=== PATIENT | female | born 1980 ===

== ENCOUNTER 2019-01-02 18:37 | Emergency (ER) | payer SELFPAY ==
[2019-01-02 19:34] VITALS: O2SAT 100
--- NOTE | 2019-01-02 20:20 | ED PDOC ---
HPI: Abdomen Time Seen by Provider: 01/02/19 19:36 Chief Complaint (Nursing): Abdominal Pain Chief Complaint (Provider): Abdominal Pain History Per: Patient History/Exam Limitations: no limitations Onset/Duration Of Symptoms: Days (x10) Current Symptoms Are (Timing): Still Present Additional Complaint(s): Patient is a 38 y/o female with no significant PMHx who presents to the ED for evaluation of right-sided abdominal pain, onset ten days ago. The patient claims the pain was of gradual onset, but has worsened and become constant. Patient reports at the onset of her symptoms she was experiencing dysuria that has now resolved. Patient states the pain is radiating down to her right lower quadrant and up to her posterior shoulder. Patient complains of nausea, a subjective fever, and chills. Patient denies any recent injury, vomiting, constipation, diarrhea, vaginal discharge, and hematuria. Of note, patient is on the last day of her period and is exhibiting normal bleeding. PCP: None Provided Past Medical History Reviewed: Historical Data, Nursing Documentation, Vital Signs Vital Signs: Last Vital Signs Temp 99.2 F 01/02/19 19:32 Pulse 69 01/02/19 19:32 Resp 16 01/02/19 19:32 BP 130/77 01/02/19 19:32 Pulse Ox 100 01/02/19 19:32 - Medical History PMH: No Chronic Diseases - Surgical History Surgical History: - Family History Family History: States: Diabetes - Social History Current smoker - smoking cessation education provided: No Ex-Smoker (has not smoked in the last 12 months): No - Home Medications Home Medications: Ambulatory Orders Medication Instructions Recorded Ibuprofen [Motrin Tab] 600 mg PO Q6 #30 tab 01/03/19 - Allergies Allergies/Adverse Reactions: Allergies Allergy/AdvReac Type Severity Reaction Status Date / Time No Known Allergies Allergy Verified 01/02/19 19:32 Review of Systems ROS Statement: Except As Marked, All Systems Reviewed And Found Negative (as per HPI) Constitutional: Positive for: Fever (subjective), Chills Gastrointestinal: Positive for: Nausea, Abdominal Pain (right-sided; radiating to right lower quadrant). Negative for: Vomiting, Diarrhea, Constipation Genitourinary Female: Positive for: Vaginal Bleeding (Normal). Negative for: Dysuria, Hematuria, Vaginal Discharge Musculoskeletal: Positive for: Shoulder Pain (right posterior) Physical Exam - Reviewed Nursing Documentation Reviewed: Yes Vital Signs Reviewed: Yes - Physical Exam Appears: Positive for: Non-toxic, No Acute Distress Head Exam: Positive for: ATRAUMATIC, NORMOCEPHALIC Skin: Positive for: Warm, Dry. Negative for: Jaundice Eye Exam: Positive for: EOMI, PERRL ENT: Negative for: Pharyngeal Erythema, Tonsillar Exudate Neck: Positive for: Painless ROM, Supple Cardiovascular/Chest: Positive for: Regular Rate, Rhythm. Negative for: Murmur Respiratory: Positive for: Normal Breath Sounds. Negative for: Respiratory Distress Gastrointestinal/Abdominal: Positive for: Soft, Tenderness (right lateral). Negative for: Mass, Guarding, Rebound, Other (McBurney's and Mckeon's Sign) Back: Positive for: Normal Inspection. Negative for: L CVA Tenderness, R CVA Tenderness Extremity: Positive for: Normal ROM. Negative for: Deformity Lymphatic: Negative for: Adenopathy Neurological/Psych: Positive for: Awake. Negative for: Motor/Sensory Deficits - Laboratory Results Result Diagrams: 01/02/19 21:02 01/02/19 21:02 - ECG O2 Sat by Pulse Oximetry: 100 (RA) Pulse Ox Interpretation: Normal Medical Decision Making Medical Decision Making: Time: 1956 Impression: Right-Sided Abdominal Pain DDx includes but not limited to gall bladder disease, pyelonephritis, and hepatic disease. Plan: CMP Lipase Urine Urine Dipstick CBC Toradol 15 mg IVP IV Insertion Abdomen Limited (GB Included) [US] Labs unremarkable. Time: 2129 Findings Liver Measures 13.6 cm in length. Normal echogenicity of the liver parenchyma. Solid inhomogeneous lesion in the left lobe of the liver measuring 6.5 x 5.3 x 6.1 cm. Right hepatic solid hypoechoic lesion measuring 2.1 x 2.1 x 2.1 cm. No intrahepatic bile duct dilatation. Gallbladder Unremarkable. No gallstones. Wall thickness measures 0.2 cm. Common bile duct Measures 4 mm. No stones. No dilatation. Pancreas Unremarkable as visualized. No mass. No ductal dilatation. Right kidney Measures 9.1 x 4.9 x 4.4 cm in length. Normal echogenicity. No calculus, mass, or hydronephrosis. Aorta No aneurysmal dilatation. IVC Unremarkable. Other Findings None. Impression 1. Left lobe of the liver large solid hypoechoic lesion measuring 6.5 x 5.3 x 6.1 cm. 2. Right hepatic solid hypoechoic lesion measuring 2.1 x 2.1 x 2.1 cm. 3. Follow up with CT hepatic protocol is recommended. Electronically signed on Jan 02, 2019 9:30:33 PM EDT by: Gaetano Ng M.D., SHARRI Certified By [facility] Trained MRI and CT Specialist CT ordered as recommended above. Endorsed to Dr Bazzi at [address], reassessment and final ER disposition. Scribe Attestation: Documented by Arian Munguia, acting as a scribe for Celina Wade MD. Provider Scribe Attestation: All medical record entries made by the Scribe were at my direction and personally dictated by me. I have reviewed the chart and agree that the record accurately reflects my personal performance of the history, physical exam, medical decision making, and the department course for this patient. I have also personally directed, reviewed, and agree with the discharge instructions and disposition. Disposition - Clinical Impression Clinical Impression: Side pain - Disposition Disposition: Transfer of Care Disposition Time: 23:00 Condition: STABLE Prescriptions: Ibuprofen [Motrin Tab] 600 mg PO Q6 #30 tab Print Language: WOLOF
[2019-01-02 21:10] LABS: BASO # 0.1 K/uL (0.0-0.2); BASO % 0.9 % (0.0-2.0); EOS # 0.1 K/uL (0.0-0.7); EOS % 1.1 % (0.0-4.0); HEMOGLOBIN 12.8 g/dL (12.0-16.0); LYMPH # 3.5 K/uL (1.0-4.3); LYMPH % 42.4 % (20.0-40.0); MEAN CELL VOLUME 83.5 fl (81.0-99.0); MEAN CORPUSCULAR HEMOGLOBIN 27.3 pg (27.0-31.0); MEAN CORPUSCULAR HGB CONC 32.7 g/dL (33.0-37.0); MEAN PLATELET VOLUME 9.7 fl (7.2-11.7); MONO # 0.4 K/uL (0.0-0.8); MONO % 5.2 % (0.0-10.0); NEUT # 4.1 K/uL (1.8-7.0); NEUT % 50.4 % (50.0-75.0); RBC 4.69 Mil/uL (3.80-5.20); RED CELL DISTRIBUTION WIDTH 14.1 % (11.5-14.5); WHITE BLOOD COUNT 8.2 K/uL (4.8-10.8)
[2019-01-02 21:16] LABS: ALB/GLOB RATIO 1.3 (1.0-2.1); ALBUMIN 4.6 g/dL (3.5-5.0); ALT/SGPT 30 U/L (9-52); AST/SGOT 32 U/L (14-36); BLOOD UREA NITROGEN 11 mg/dl (7-17); CALCIUM 9.3 mg/dL (8.4-10.2); GFR NON-AFRICAN AMERICAN > 60; LIPASE 77 U/L (23-300)
[2019-01-02] MEDS ORDERED: Iohexol 240 (50 ml) PO STA (21:41)
[2019-01-02] MEDS ORDERED: Sodium Chloride 0.9% 50 ML IV ONE (23:05)
[2019-01-02] MEDS ORDERED: Iohexol 300 100 ML IJ ONE (23:05)
--- NOTE | 2019-01-03 00:05 | ED PDOC ---
- Laboratory Results Result Diagrams: 01/02/19 21:02 01/02/19 21:02 Lab Results: Total Bilirubin 0.3 mg/dl (0.2-1.3) 01/02/19 21:02 AST 32 U/L (14-36) 01/02/19 21:02 ALT 30 U/L (9-52) 01/02/19 21:02 Alkaline Phosphatase 86 U/L (38-126) 01/02/19 21:02 Total Protein 8.2 G/DL (6.3-8.2) 01/02/19 21:02 Albumin 4.6 g/dL (3.5-5.0) 01/02/19 21:02 Globulin 3.6 gm/dL (2.2-3.9) 01/02/19 21:02 Albumin/Globulin Ratio 1.3 (1.0-2.1) 01/02/19 21:02 Lipase 77 U/L (23-300) 01/02/19 21:02 - ECG O2 Sat by Pulse Oximetry: 100 (RA) Pulse Ox Interpretation: Normal Medical Decision Making Medical Decision Making: Time: 2329 -- Patient endorsed to me by Dr. Wade, pending Liver Protocol Triple Phase CT and re-evaluation. Time: 34 CT SCAN OF THE ABDOMEN AND PELVIS WITH CONTRAST. CLINICAL HISTORY: Abdominal pain. TECHNIQUE: Multiple axial and coronal CT images were obtained through the abdo men and pelvis after administration of intravenous contrast material. Precontrast and postcontrast images were obtained. COMPARISON: 12/20/2009. COMMENTS: Enhancing lesion of the left hepatic lobe measuring 6.2x5.0 cm, not present on prior exam. Central nonenhancing hypodense area is noted measuring 1.1x0.5 cm. The remaining liver is of uniform attenuation without mass or defect. There is no intra or extrahepatic biliary ductal dilatation. The spleen is normal. The gallbladder is within normal limits. The pancreas is of normal contour and attenuation characteristics. There is no evidence of adrenal mass. Both kidneys demonstrate prompt and equal nephrograms. The kidneys are normal in size, shape and configuration. There is no evidence of renal or ureteral mass. No renal or ureteral calculi are identified. There is no hydroureter or hydronephrosis. No evidence for appendicitis. There is no bowel wall thickening. No evidence for small or large bowel obstruction. There is no evidence of abdominal ascites or lymphadenopathy. There is no evidence of intrinsic or extrinsic bladder mass. There is no pelvic ascites or lymphadenopathy. Uncomplicated colonic diverticulosis. Mild diffuse thickening of the bladder. Images of the lung bases show no evidence of pleural or parenchymal mass. There are no pleural effusions. The bony structures are free of lytic or blastic lesions. IMPRESSION: Enhancing lesion of the left hepatic lobe which was not present on prior exam. Findings are suspicious for focal nodular hyperplasia. Correlation with nuclear medicine liver scan on elective bases is suggestive for further assessment. Uncomplicated colonic diverticulosis. Mild diffuse thickening of the bladder, probably underdistention. Thank you for your kind referral of this patient. Electronically signed on Jan 03, 2019 12:35:56 AM EDT by: Vivi Balderrama M.D., Certified by PARTHA BROWN, Neuroradiology Time: 209 -- Discussed results and importance of following up with GI or liver specialist. Additionally advised patient to follow up with PMD for further evaluation. Patient is feeling better at this time. Symptoms are more likely related to abdominal strain. Patient is stable for discharge home. [facility] [employer] #[id number] used to convey results and disposition. ____ Scribe Attestation: Documented by Hansel Feldman, acting as a scribe for Toni Bazzi MD. Provider Scribe Attestation: All medical record entries made by the Scribe were at my direction and personally dictated by me. I have reviewed the chart and agree that the record accurately reflects my personal performance of the history, physical exam, medical decision making, and the department course for this patient. I have also personally directed, reviewed, and agree with the discharge instructions and disposition. Disposition Counseled Patient/Family Regarding: Studies Performed, Diagnosis, Need For Followup, Rx Given - Clinical Impression Clinical Impression: Side pain, Focal nodular hyperplasia of liver - POA Present On Arrival: None - Disposition Referrals: [facility] [Outside] Disposition: Routine/Home Disposition Time: 02:10 Condition: STABLE Prescriptions: Ibuprofen [Motrin Tab] 600 mg PO Q6 #30 tab Instructions: Abdominal Muscle Strain (DC), Focal Nodular Hyperplasia Forms: [facility] (Italian) Print Language: BURKINAN
[2019-01-03 02:13] VITALS: BP 118/76; PULSE 66; RESP 14; TEMP 98.7
--- NOTE | 2019-01-03 09:52 | US ---
Date of service: 01/02/2019 HISTORY: RIGHT flank and RUQ pain COMPARISON: None. TECHNIQUE: Sonographic evaluation of the right upper quadrant of the abdomen. FINDINGS: LIVER: Measures 13.6 cm in length. Normal echogenicity of the liver parenchyma. Smooth contour. Heterogeneous lobulated mass in left lobe of liver medial segment measuring 5.3 x 6.1 x 6.5 cm. Second rounded, hypoechoic solid mass in right lobe of liver, 2.1 cm diameter. No biliary ductal dilatation. GALLBLADDER: Unremarkable. No gallstones. COMMON BILE DUCT: Measures 4 mm. No stones. No dilatation. PANCREAS: Unremarkable as visualized. No mass. No ductal dilatation. RIGHT KIDNEY: Measures 9.1 cm in length. Normal echogenicity. No calculus, mass, or hydronephrosis. AORTA: No aneurysmal dilatation. IVC: Unremarkable. OTHER FINDINGS: None . IMPRESSION: Two hepatic masses are identified, 2.1 cm diameter and 6.5 cm greatest dimension. Possible malignancy.
--- NOTE | 2019-01-03 12:50 | CT ---
Date of service: 01/02/2019 PROCEDURE: CT Abdomen and Pelvis with and without intravenous contrast HISTORY: abdominal pain liver lesions HEPATIC PROTOCOL COMPARISON: None. TECHNIQUE: Axial images of the abdomen were obtained in the pre contrast, hepatic arterial and portal venous phases of enhancement. Coronal and sagittal reformats were generated. Contrast dose: 90 mL Omnipaque 300 Radiation dose: Total exam DLP = 664.69 mGy-cm. This CT exam was performed using one or more of the following dose reduction techniques: Automated exposure control, adjustment of the mA and/or kV according to patient size, and/or use of iterative reconstruction technique. FINDINGS: LOWER THORAX: Unremarkable. LIVER: The liver is significant for a somewhat lobulated rounded mass in the lateral segment of the left hepatic lobe measuring approximately 6.5 cm in diameter. There is a small amount of central low attenuation likely representing central necrosis. The mass enhances homogeneously on the arterial phase. The enhancement increase is mildly on progression to portal venous phase images. 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 There is no other mass identified. Please note that a 2nd mass was identified in the right lobe of the liver on ultrasound examination of 01/02/2019. This is not demonstrated on this examination. This is concerning and further evaluation with magnetic resonance imaging is therefore advised for detection and characterization of this 2nd mass. This should be performed with and without intravenous gadolinium. There is no biliary dilatation. The liver is otherwise smooth in contour aside from the left lobe mass. GALLBLADDER AND BILE DUCTS: Unremarkable. PANCREAS: Unremarkable. No gross lesion or ductal dilatation. SPLEEN: Unremarkable. ADRENALS: Unremarkable. No mass. KIDNEYS AND URETERS: Unremarkable. No hydronephrosis. No solid mass. VASCULATURE: Unremarkable. No aortic aneurysm. No aortic atherosclerotic calcification or mural plaque present. BOWEL: Mild sigmoid diverticulosis. No evidence of diverticulitis. No bowel obstruction. No other abnormal bowel loops are appreciated. APPENDIX: Normal appendix. PERITONEUM: Unremarkable. No free fluid. No free air. LYMPH NODES: Unremarkable. No enlarged lymph nodes. BLADDER: Unremarkable. REPRODUCTIVE: Normal uterus BONES: No acute fracture. OTHER FINDINGS: None. IMPRESSION: 6.5 cm mass in the lateral segment left hepatic lobe. This corresponds to a mass identified on ultrasound examination of the same date. A 2nd 2.1 cm mass in the right lobe of the liver on ultrasound examination was not detected on this examination. Further evaluation and characterization with gadolinium enhanced magnetic resonance imaging is therefore advised. 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
== END 2019-01-03 02:10 | disposition home or self-care (01) ==
LOC: H.ER 18:37
DX: R10.9 Unspecified abdominal pain (principal); Q44.7 Other congenital malformations of liver; Z87.891 Personal history of nicotine dependence
CPT/HCPCS: 74170; 76705; 80053; 81025; 83690; 85025; 96374; 99284; J1885; Q9967